=== PATIENT | female | born 1995 | race American Indian/Alaskan Native ===

== ENCOUNTER 2017-11-20 13:50 | Emergency (ER) | payer MEDICAID, OTHER ==
[2017-11-20 13:54] VITALS: BMI 28.3
[2017-11-20 13:58] VITALS: RESP 18
--- NOTE | 2017-11-20 14:32 | ED PDOC ---
Arrival/HPI - General Chief Complaint: GI Problem Time Seen by Provider: 11/20/17 14:01 Historian: Patient - History of Present Illness Narrative History of Present Illness (Text): 11/20/17 14:27 Natividad Ojeda is a 22 yo fm who was in her normal state of helath until last when she developed nausea and vomiting. She presents today with continued nausea and vomiting, as well as dyspnea that began this morning. She states the episodes of nausea and vomiting are intermittent. She also mentions that there is a chance she could be , as she missed her period last month. Patient also states that she has been before and had an elective at the age of 15. She also endorses increased urinary frequency. She denies fever, chills, chest pain, diarrhea, dysuria. Symptom Onset: Sudden Past Medical History - Provider Review Nursing Documentation Reviewed: Yes - Past History Past History: No Previous - Infectious Disease Hx of Infectious Diseases: None - Tetanus Immunization Tetanus Immunization: Unknown - Cardiac Hx Heart Murmur: Yes - Pulmonary Hx Respiratory Disorders: No - Neurological Hx Neurological Disorder: No - HEENT Hx HEENT Disorder: No - Renal Hx Renal Disorder: No - Endocrine/Metabolic Hx Endocrine Disorders: No - Hematological/Oncological Hx Blood Disorders: No - Integumentary Hx Dermatological Disorder: No - Musculoskeletal/Rheumatological Hx Musculoskeletal Disorders: No - Gastrointestinal Hx Gastrointestinal Disorders: No - Genitourinary/Gynecological Hx Genitourinary Disorders: No - Psychiatric Hx Depression: No Hx Emotional Abuse: No Hx Physical Abuse: No Hx Substance Use: Yes - Past Surgical History Past Surgical History: No Previous - Anesthesia Hx Anesthesia: No - Suicidal Assessment Feels Threatened In Home Enviroment: No Family/Social History - Physician Review Nursing Documentation Reviewed: Yes Family/Social History: Diabetes, Neoplasm/Cancer (paternal aunt had breast CA) Narrative Family History (Free Text): 11/20/17 14:34 Fam hx significant for breast cancer Smoking Status: Light Smoker < 10 Cigarettes Daily Hx Alcohol Use: Yes Frequency of alcohol use: Socially Hx Substance Use: Yes Substance used: marijuana Hx Substance Use Treatment: No Allergies/Home Meds Allergies/Adverse Reactions: Allergies No Known Allergies Allergy (Verified 07/28/14 12:20) Home Medications: Home Meds Medication Instructions Recorded Confirmed No Known Home Med 11/20/17 11/20/17 Review of Systems - Review of Systems Constitutional: absent: Fevers, Night Sweats Eyes: absent: Vision Changes Respiratory: SOB. absent: Cough, Wheezing Cardiovascular: absent: Chest Pain, Palpitations, Edema Gastrointestinal: Abdominal Pain, Nausea, Vomiting, Food Intolerance. absent: Diarrhea, Hematemesis Genitourinary Female: Frequency. absent: Dysuria, Vaginal Bleeding, Vaginal Discharge Physical Exam Vital Signs Reviewed: Yes Vital Signs Temp Pulse Resp BP Pulse Ox 11/20/17 13:57 99.0 F 91 H 18 118/75 100 Temperature: Afebrile Blood Pressure: Normal Pulse: Regular Respiratory Rate: Normal Appearance: Positive for: Non-Toxic, Uncomfortable Mental Status: Positive for: Alert and Oriented X 3 - Systems Exam Head: Present: Atraumatic, Normocephalic Pupils: Present: PERRL Extroacular Muscles: Present: EOMI Mouth: Present: Moist Mucous Membranes Neck: Present: Normal Range of Motion Respiratory/Chest: Present: Clear to Auscultation. No: Wheezes, Rales, Rhonchi Cardiovascular: Present: Regular Rate and Rhythm, Normal S1, S2. No: Murmurs, Rub, Gallop Abdomen: Present: Tenderness (tenderness to palpation LLQ). No: Rebound, Guarding Upper Extremity: Present: Normal Inspection. No: Cyanosis, Edema Lower Extremity: Present: Normal Inspection. No: Edema Skin: Present: Warm, Dry Psychiatric: Present: Alert, Oriented x 3 Medical Decision Making ED Course and Treatment: 11/20/17 15:08 Patient's urine test is positive. Will perform transvaginal US to assess viability. Will encourage patient to follow up with her preferred leasing director physician. 11/20/17 17:36 Transvaginal US performed. Report reviewed with radiologist. Appropriate transvaginal and appropriate age of correlated with quantitative HCG levels. Will discharge patient and refer her to leasing director. - Lab Interpretations Lab Results: 11/20/17 14:35 11/20/17 14:35 Lab Results 11/20/17 14:50: Urine Color Yellow, Urine Appearance Clear, Urine pH 7.0, Ur Specific [place] 1.020, Urine Protein Trace H, Urine Glucose (UA) Negative, Urine Ketones Trace H, Urine Blood Negative, Urine Nitrate Negative, Urine Bilirubin Negative, Urine Urobilinogen 0.2, Ur Leukocyte Esterase Negative, Urine RBC 1 - 3, Urine WBC 0 - 2, Ur Epithelial Cells 4 - 5, Urine Bacteria Large, Coarse Granular Casts Trace H, Urine HCG, Qual Positive 11/20/17 14:35: Sodium 140, Potassium 3.4 L, Chloride 103, Carbon Dioxide 23, Anion Gap 17, BUN 6 L, Creatinine 0.6 L, Est GFR ( Amer) > 60, Est GFR ( Non-Af Amer) > 60, Random Glucose 83, Calcium 10.1, Total Bilirubin 0.4, AST 17 , ALT 12, Alkaline Phosphatase 56, Total Protein 8.1, Albumin 4.7, Globulin 3.4 , Albumin/Globulin Ratio 1.4 11/20/17 14:35: WBC 7.1 D, RBC 4.26, Hgb 13.7, Hct 38.4, MCV 90.1, MCH 32.2, MCHC 35.7, RDW 13.9, Plt Count 241, MPV 10.7, Gran % 60.0, Lymph % (Auto) 32.0, [place] % (Auto) 7.5 H, Eos % (Auto) 0.4 L, Baso % (Auto) 0.1, Gran # 4.23, Lymph # (Auto) 2.3, [place] # (Auto) 0.5, Eos # (Auto) 0.0, Baso # (Auto) 0.01 11/20/17 14:35: Beta HCG, Quant 52557.00 H - RAD Interpretation Radiology Orders: 11/20/17 15:03 OB TRANSVAGINAL [US] Urgent Disposition/Present on Arrival - Present on Arrival Any Indicators Present on Arrival: No History of DVT/PE: No History of Uncontrolled Diabetes: No Urinary Catheter: No History of Decub. Ulcer: No History Surgical Site Infection Following: None - Disposition Have Diagnosis and Disposition been Completed?: Yes Diagnosis: Hyperemesis gravidarum Disposition: HOME/ ROUTINE Disposition Time: 17:38 Patient Plan: Discharge Condition: GOOD Discharge Instructions (ExitCare): Hyperemesis Gravidarum, Nausea and Vomiting of (DC) Referrals: [facility] [Outside] - [facility] [Outside] - Follow up with primary Forms: [employer] (Japanese)
[2017-11-20 14:48] LABS: BASO # 0.01 K/mm3 (0.0-2.0); BASO % 0.1 % (0.0-3.0); EOS % 0.4 % (1.5-5.0); GRAN # 4.23 (1.4-6.5); HEMOGLOBIN 13.7 g/dL (12.0-16.0); LYMPH # 2.3 (1.2-3.4); MEAN CELL VOLUME 90.1 fl (80.0-105.0); MEAN CORPUSCULAR HEMOGLOBIN 32.2 pg (25.0-35.0); MEAN CORPUSCULAR HGB CONC 35.7 g/dl (31.0-37.0); MEAN PLATELET VOLUME 10.7 fl (7.0-11.0); MONO # 0.5 (0.1-0.6); MONO % 7.5 % (1.0-6.0); RBC 4.26 10^6/uL (3.5-6.1); RED CELL DISTRIBUTION WIDTH 13.9 % (11.5-14.5); WHITE BLOOD COUNT 7.1 10^3/ul (4.5-11.0)
[2017-11-20 14:58] LABS: ALB/GLOB RATIO 1.4 (1.1-1.8); ALBUMIN 4.7 g/dL (3.0-4.8); ALT/SGPT 12 U/L (7-56); AST/SGOT 17 U/L (14-36); BLOOD UREA NITROGEN 6 mg/dL (7-21); CALCIUM 10.1 mg/dL (8.4-10.5); GFR AFRICAN-AMERICAN > 60; GFR NON-AFRICAN AMERICAN > 60
[2017-11-20 14:59] LABS: URINE BILIRUBIN NEGATIVE (NEGATIVE); URINE BLOOD NEGATIVE (NEGATIVE); URINE GLUCOSE (UA) NEGATIVE (NEGATIVE); URINE LEUKOCYTE ESTERASE NEGATIVE Leu/uL (NEGATIVE); URINE PROTEIN TRACE mg/dL (<30 mg/dL); URINE UROBILINOGEN 0.2 E.U./dL (<1 E.U./dL)
[2017-11-20 15:00] LABS: HCG,QUALITATIVE URINE POSITIVE (NEGATIVE); URINE APPEARANCE CLEAR (CLEAR); URINE COLOR YELLOW (YELLOW)
[2017-11-20 15:02] LABS: URINE BACTERIA LARGE (NEG); URINE WBC 0 - 2 /hpf (0-6)
[2017-11-20 15:03] LABS: URINE COARSE GRANULAR CAST TRACE /hpf (0-2)
--- NOTE | 2017-11-20 17:26 | US ---
Date of service: 11/20/2017 HISTORY: assess viability COMPARISON: None available. TECHNIQUE: Transabdominal and transvaginal pelvic ultrasound was performed with longitudinal and transverse images submitted for interpretation. FINDINGS: UTERUS: Measures 11.8 x 6.5 x 7.8 cm. The uterus is retro with a solitary hypoechoic structure with partial posterior shadowing compatible with a right lateral mid fundal fibroid, sub serosal in location measuring 1.8 x 1.6 x 1.1 cm encroaching the decidual reaction from an intrauterine gestation. No additional myometrial pathology appreciable. Delete ENDOMETRIUM: There is a gestational sac identified measuring mean diameter of 2.24 cm. pole is identified measuring crown-rump length mean of 0.66 cm corresponding 6 weeks 4 days. This concordant with a 7 week 2 day estimated gestational age by dates. No prominent subchorionic hemorrhage is appreciated. cardiac activity is recorded 135 beats per minute. Yolk sac is questionably identified. 10 mm and is not seen. Estimated date delivery 07/11/2018. CERVIX: Internal cervical os is closed with cervical length approximately 3.2 cm. RIGHT OVARY: Measures 5.1 x 3.2 x 2.9 cm. No solid mass. Normal flow. Trace fluid is identified in the right adnexal compartment. LEFT OVARY: Measures 4.0 x 3.9 x 3.9 cm. No solid mass. Normal flow. A simple left ovarian cyst measures 2.0 x 2.4 x 2.1 cm likely reflecting corpus luteum cyst. OTHER FINDINGS: No definite ectopic identified. IMPRESSION: 1. A single viable intrauterine gestation is identified within the endometrial cavity with average pelvic age of 6 weeks 4 days with cardiac activity 135 beats per minute. No definitive placental abruption or previa although a small mid fundal myoma measures 1.8 cm encroaching the decidual reaction of the . Clinical correlation recommended. 2. Likely left corpus luteum cyst. Trace fluid right adnexal compartment with the right ovary otherwise unremarkable.
[2017-11-20 18:28] VITALS: BP 121/72; PULSE 82; TEMP 98.9; O2SAT 100
--- NOTE | 2017-11-21 06:57 | CARD ---
APPROVED REPORT Date of service: 11/20/2017 EKG Measurement Heart [id number] <Conclusion> Normal sinus rhythm Minimal voltage criteria for LVH, may be normal variant Borderline ECG
== END 2017-11-20 18:00 | disposition home or self-care (01) ==
LOC: ED 13:50
DX: O21.0 Mild hyperemesis gravidarum (principal); Z3A.01 Less than 8 weeks gestation of pregnancy

== ENCOUNTER 2017-11-22 17:13 | Emergency (ER) | payer MEDICAID, OTHER ==
[2017-11-22 17:13] VITALS: BMI 28.3
[2017-11-22] MEDS ORDERED: Sodium Chloride 0.9% 1,000 ML IV STA (17:25)
--- NOTE | 2017-11-22 17:56 | ED PDOC ---
Arrival/HPI - General Chief Complaint: Female Genitourinary Time Seen by Provider: 11/22/17 17:16 Historian: Patient - History of Present Illness Narrative History of Present Illness (Text): 11/22/17 17:53 22yo female whose LMP was September 30 bib the EMS for nausea, vomiting, dizziness and vaginal spotting. States she found out while she was here on 11/18 that she is and have not made an appointment with OB yet. States she has been having "morning sickness", but in addition started spotting today. She denies abdominal pain, fever, chills, urinary symptoms, fever, chills, any other complaint. Past Medical History - Provider Review Nursing Documentation Reviewed: Yes - Past History Past History: No Previous - Infectious Disease Hx of Infectious Diseases: None - Tetanus Immunization Tetanus Immunization: Unknown - Cardiac Hx Heart Murmur: Yes - Pulmonary Hx Respiratory Disorders: No - Neurological Hx Neurological Disorder: No - HEENT Hx HEENT Disorder: No - Renal Hx Renal Disorder: No - Endocrine/Metabolic Hx Endocrine Disorders: No - Hematological/Oncological Hx Blood Disorders: No - Integumentary Hx Dermatological Disorder: No - Musculoskeletal/Rheumatological Hx Musculoskeletal Disorders: No - Gastrointestinal Hx Gastrointestinal Disorders: No - Genitourinary/Gynecological Hx Genitourinary Disorders: No - Psychiatric Hx Depression: No Hx Emotional Abuse: No Hx Physical Abuse: No Hx Substance Use: Yes - Past Surgical History Past Surgical History: No Previous - Anesthesia Hx Anesthesia: No Hx Anesthesia Reactions: No Hx Malignant Hyperthermia: No - Suicidal Assessment Feels Threatened In Home Enviroment: No Family/Social History - Physician Review Nursing Documentation Reviewed: Yes Family/Social History: Unknown Family HX Smoking Status: Light Smoker < 10 Cigarettes Daily Hx Alcohol Use: Yes Hx Substance Use: Yes Substance used: marijuana Hx Substance Use Treatment: No Allergies/Home Meds Allergies/Adverse Reactions: Allergies No Known Allergies Allergy (Verified 07/28/14 12:20) Review of Systems - Physician Review All systems were reviewed & negative as marked: Yes - Review of Systems Constitutional: Normal Eyes: Normal ENT: Normal Respiratory: Normal Cardiovascular: Normal Gastrointestinal: Nausea, Vomiting. absent: Abdominal Pain, Diarrhea, Hematemesis Genitourinary Female: Vaginal Bleeding. absent: Dysuria, Frequency Musculoskeletal: Normal Skin: Normal Neurological: Normal Endocrine: Normal Hemo/Lymphatic: Normal Psychiatric: Normal Physical Exam Vital Signs Reviewed: Yes Vital Signs Temp Pulse Resp BP Pulse Ox 11/22/17 17:14 99 F 68 18 119/75 100 Temperature: Afebrile Blood Pressure: Normal Pulse: Regular Respiratory Rate: Normal Appearance: Positive for: Well-Appearing, Non-Toxic, Comfortable Pain Distress: None Mental Status: Positive for: Alert and Oriented X 3 - Systems Exam Head: Present: Atraumatic, Normocephalic Pupils: Present: PERRL Extroacular Muscles: Present: EOMI Conjunctiva: Present: Normal Mouth: Present: Moist Mucous Membranes Neck: Present: Normal Range of Motion Respiratory/Chest: Present: Clear to Auscultation, Good Air Exchange. No: Respiratory Distress, Accessory Muscle Use Cardiovascular: Present: Regular Rate and Rhythm, Normal S1, S2. No: Murmurs Abdomen: No: Tenderness, Distention, Peritoneal Signs, Rebound, Guarding, McBurney's Point Tender, Rovsing's Sign Present Genitourinary/Pelvic Exam: Present: Cervical os Closed. No: Vaginal Bleeding Back: Present: Normal Inspection Upper Extremity: Present: Normal Inspection. No: Cyanosis, Edema Lower Extremity: Present: Normal Inspection. No: Edema Neurological: Present: GCS=15, CN II-XII Intact, Speech Normal Skin: Present: Warm, Dry, Normal Color. No: Rashes Psychiatric: Present: Alert, Oriented x 3, Normal Insight, Normal Concentration Medical Decision Making ED Course and Treatment: 11/22/17 19:45 PT in Emergency department for stated history. She was hemodynamically stable and in no distress. She did not vomit in Emergency department. [place] [address].00 [place] noted which was higher than the previous beta Transvaginal US IMPRESSION: Single intrauterine live with ultrasound estimated gestational age of 7 weeks 1 day 0 weeks 4 days. Estimated date of delivery by ultrasound is 07/10. Possible right posterior uterine fibroid measures 1.5 centimeter. Result was DW the pt and she was referred to a OB - Lab Interpretations Lab Results: 11/22/17 17:55 11/22/17 17:55 Lab Results 11/22/17 19:10: Blood Type Confirm O POSITIVE 11/22/17 17:55: Blood Type O POSITIVE, Antibody Screen Negative, BBK History Checked No verified bt 11/22/17 17:55: Urine Color yellow, Urine Appearance Clear, Urine pH 6.0, Ur Specific [place] 1.015, Urine Protein Negative, Urine Glucose (UA) Negative, Urine Ketones 40 H, Urine Blood Large H, Urine Nitrate Negative, Urine Bilirubin Negative, Urine Urobilinogen 0.2, Ur Leukocyte Esterase Negative, Urine RBC 20 - 25, Urine WBC 0 - 2, Ur Epithelial Cells 6 - 8, Urine HCG, Qual Positive 11/22/17 17:55: Beta HCG, Quant 64123.00 H 11/22/17 17:55: Sodium 137, Potassium 3.7, Chloride 101, Carbon Dioxide 23, Anion Gap 16, BUN 5 L, Creatinine 0.5 L, Est GFR ( Amer) > 60, Est GFR ( Non-Af Amer) > 60, Random Glucose 84, Calcium 9.8, Total Bilirubin 0.4, AST 19, ALT 19, Alkaline Phosphatase 49, Total Protein 7.7, Albumin 4.5, Globulin 3.2, Albumin/Globulin Ratio 1.4 11/22/17 17:55: PT 12.8 H, INR 1.12, APTT 27.2 11/22/17 17:55: WBC 7.7, RBC 4.09, Hgb 13.0, Hct 36.4, MCV 89.0, MCH 31.8, MCHC 35.7, RDW 13.7, Plt Count 240, MPV 10.8, Gran % 57.4, Lymph % (Auto) 31.9, [place] % (Auto) 10.3 H, Eos % (Auto) 0.3 L, Baso % (Auto) 0.1, Gran # 4.39, Lymph # ( Auto) 2.4, [place] # (Auto) 0.8 H, Eos # (Auto) 0.0, Baso # (Auto) 0.01 - RAD Interpretation Radiology Orders: 11/22/17 17:24 TRANSVAGINAL [US] Stat - Medication Orders Current Medication Orders: Discontinued Medications Sodium Chloride (Sodium Chloride 0.9%) 1,000 mls @ 999 mls/hr IV .Q1H1M STA Stop: 11/22/17 18:25 Last Admin: 11/22/17 18:08 Dose: 999 mls/hr eMAR Start Stop Document 11/22/17 18:08 EQ (Rec: 11/22/17 18:08 EQ [id number]) Intravenous Solution Start Date 11/22/17 Start Time 18:08 Metoclopramide HCl (Reglan) 10 mg IVP STAT STA Stop: 11/22/17 17:28 Last Admin: 11/22/17 18:07 Dose: 10 mg IVP Administration Document 11/22/17 18:07 EQ (Rec: 11/22/17 18:07 EQ [id number]) Charges for Administration # of IVP Administrations 1 Disposition/Present on Arrival - Present on Arrival Any Indicators Present on Arrival: No History of DVT/PE: No History of Uncontrolled Diabetes: No Urinary Catheter: No History of Decub. Ulcer: No History Surgical Site Infection Following: None - Disposition Have Diagnosis and Disposition been Completed?: Yes Diagnosis: Threatened , Hyperemesis gravidarum Disposition: HOME/ ROUTINE Disposition Time: 19:45 Patient Plan: Discharge Patient Problems: Current Active Problems Problem Status Onset Hyperemesis gravidarum Acute Threatened Acute Condition: STABLE Discharge Instructions (ExitCare): Threatened Miscarriage, Nausea and Vomiting , Adult (DC) Additional Instructions: Follow up with OB Return to Emergency department for any new symptoms Prescriptions: Multivit/Folic Acid/I [ Plus] 1 tab PO DAILY #30 tab Referrals: Alex Mcdonald [Primary Care Provider] - Follow up with primary [facility] [place] [Outside] - [facility] [Outside] - Follow up with primary Forms: [employer] (Greek)
[2017-11-22 18:17] LABS: ALB/GLOB RATIO 1.4 (1.1-1.8); ALBUMIN 4.5 g/dL (3.0-4.8); ALT/SGPT 19 U/L (7-56); AST/SGOT 19 U/L (14-36); BLOOD UREA NITROGEN 5 mg/dL (7-21); CALCIUM 9.8 mg/dL (8.4-10.5); GFR AFRICAN-AMERICAN > 60; GFR NON-AFRICAN AMERICAN > 60
[2017-11-22 18:20] LABS: BASO # 0.01 K/mm3 (0.0-2.0); BASO % 0.1 % (0.0-3.0); EOS % 0.3 % (1.5-5.0); GRAN # 4.39 (1.4-6.5); GRAN % 57.4 % (50.0-68.0); LYMPH # 2.4 (1.2-3.4); LYMPH % 31.9 % (22.0-35.0); MEAN CORPUSCULAR HEMOGLOBIN 31.8 pg (25.0-35.0); MEAN CORPUSCULAR HGB CONC 35.7 g/dl (31.0-37.0); MEAN PLATELET VOLUME 10.8 fl (7.0-11.0); MONO # 0.8 (0.1-0.6); MONO % 10.3 % (1.0-6.0); RBC 4.09 10^6/uL (3.5-6.1); RED CELL DISTRIBUTION WIDTH 13.7 % (11.5-14.5); URINE BILIRUBIN NEGATIVE (NEGATIVE); URINE BLOOD LARGE (NEGATIVE); URINE GLUCOSE (UA) NEGATIVE (NEGATIVE); URINE LEUKOCYTE ESTERASE NEGATIVE Leu/uL (NEGATIVE); URINE PROTEIN NEGATIVE mg/dL (<30 mg/dL); URINE UROBILINOGEN 0.2 E.U./dL (<1 E.U./dL); WHITE BLOOD COUNT 7.7 10^3/ul (4.5-11.0)
[2017-11-22 18:21] LABS: INR 1.12; PROTHROMBIN TIME 12.8 SECONDS (9.4-12.5); URINE APPEARANCE CLEAR (CLEAR)
[2017-11-22 18:22] LABS: URINE RBC 20 - 25 /hpf (0-2); URINE WBC 0 - 2 /hpf (0-6)
[2017-11-22 18:23] LABS: HCG,QUALITATIVE URINE POSITIVE (NEGATIVE)
[2017-11-22 18:24] LABS: PARTIAL THROMBOPLASTIN TIME 27.2 Seconds (25.1-36.5)
--- NOTE | 2017-11-22 19:26 | US ---
Date of service: 11/22/2017 HISTORY: /vaginal bleeding COMPARISON: Comparison is made to the previous study dated 04/17/2015 and study dated 11/20/2017 TECHNIQUE: Endovaginal ultrasound examination of the pelvis was obtained. FINDINGS: UTERUS: Right posterior uterine fibroid is suspected measures 1.2 x 1.5 x 1.3 centimeter. Nabothian cyst in the uterine cervix. ENDOMETRIUM: Intrauterine gestational sac is again noted. The CRL measures 1.03 centimeter which corresponding to gestational age of 7 weeks 1 day. The yolk sac is seen. The heart activity is visualized heart rate is 138 BPM. The gestational sac measures 3.1 x 2.6 x 1.7 centimeter corresponding to gestational age of 7 weeks 1 day. CERVIX: No cervical abnormality identified. RIGHT OVARY: Measures 4.8 by 2.8 x 3.3 cm. No solid mass. Normal flow. LEFT OVARY: Measures 3.6 x 3 x 3.2 cm. No solid mass. Normal flow. There is a cyst at the left ovary measures 2.5 x 2 x 2.1 centimeter FREE FLUID: No significant free fluid noted. OTHER FINDINGS: None. IMPRESSION: Single intrauterine live with ultrasound estimated gestational age of 7 weeks 1 day 0 weeks 4 days. Estimated date of delivery by ultrasound is 07/10/2018. Possible right posterior uterine fibroid measures 1.5 centimeter.
[2017-11-22 20:04] VITALS: BP 121/72; PULSE 66; RESP 18; TEMP 98.7; O2SAT 100
== END 2017-11-22 20:05 | disposition home or self-care (01) ==
LOC: ED 17:13
DX: O20.0 Threatened abortion (principal); O21.0 Mild hyperemesis gravidarum; Z3A.01 Less than 8 weeks gestation of pregnancy; F17.210 Nicotine dependence, cigarettes, uncomplicated
CPT/HCPCS: 76830; 80053; 81001; 84702; 84703; 85025; 85610; 85730; 86850; 86900; 96374; 99284; J2765; J7030